=== PATIENT | female | born 1995 | race Caucasian/White ===

== ENCOUNTER 2017-06-05 23:30 | Emergency (ER) | payer OTHER ==
[2017-06-05 23:32] VITALS: BP 159/94
== END 2017-06-06 01:11 | disposition home or self-care (01) ==
LOC: ED 23:30
DX: J03.90 Acute tonsillitis, unspecified (principal); R59.0 Localized enlarged lymph nodes

== ENCOUNTER 2018-03-30 23:57 | Emergency (ER) | payer OTHER ==
[~2018-03-30] VITALS: Ht 165.1 cm; Wt 99.8 kg
[2018-03-31 00:03] VITALS: Ht 165.1 cm; Wt 99.8 kg
[2018-03-31 01:22] VITALS: BP 107/74
== END 2018-03-31 01:22 | disposition home or self-care (01) ==
LOC: ED 23:57
DX: S82.832A Other fracture of upper and lower end of left fibula, initial encounter for closed fracture (principal); W18.39XA Other fall on same level, initial encounter; Y93.51 Activity, roller skating (inline) and skateboarding; Y92.89 Other specified places as the place of occurrence of the external cause; Y99.8 Other external cause status

== ENCOUNTER 2018-04-20 18:20 | Emergency (ER) | payer OTHER ==
[~2018-04-20] VITALS: Ht 165.1 cm; Wt 95.3 kg
[2018-04-20 19:15] VITALS: Ht 165.1 cm; Wt 95.3 kg
[2018-04-20 20:25] VITALS: BP 133/84
== END 2018-04-20 20:25 | disposition home or self-care (01) ==
LOC: ED 18:20
DX: S82.492D Other fracture of shaft of left fibula, subsequent encounter for closed fracture with routine healing (principal); X58.XXXD Exposure to other specified factors, subsequent encounter; R03.0 Elevated blood-pressure reading, without diagnosis of hypertension

== ENCOUNTER 2018-05-06 01:58 | Emergency (ER) | payer OTHER ==
[~2018-05-06] VITALS: Ht 165.1 cm; Wt 99.8 kg
[2018-05-06 02:02] VITALS: Ht 165.1 cm; Wt 99.8 kg
[2018-05-06 05:57] VITALS: BP 140/89
== END 2018-05-06 05:57 | disposition home or self-care (01) ==
LOC: ED 01:58
DX: T81.49XA Infection following a procedure, other surgical site, initial encounter (principal); L08.9 Local infection of the skin and subcutaneous tissue, unspecified
CPT/HCPCS: Q0092